=== PATIENT | female | born 1940 | race Caucasian/White ===

== ENCOUNTER 2016-06-11 05:22 | Emergency (ER) | payer MEDICARE ==
[2016-06-11] MEDS ORDERED: IOPAMIDOL 370 (76%) 100 ML VIAL IV ONE (05:23)
[2016-06-11] MEDS ORDERED: ASPIRIN CHEWTAB 81 MG TABLET ONE (05:34)
[2016-06-11] MEDS ORDERED: SODIUM CHLORIDE 0.9% 1,000 ML ONE (06:02)
[2016-06-11] MEDS ORDERED: METOPROLOL TARTRATE 1 MG/ML 5ML VIAL ONE (06:02)
[2016-06-11 06:27] LABS: ABSOLUTE NEUTROPHIL COUNT 17.4 K/mm3 (1.8-7.7); BASO # 0.1 K/mm3 (0.0-0.2); BASO % 0.3 % (0.2-1.0); EOS # 0.5 (0.0-0.5); EOS % 2.3 % (0.9-2.9); HEMATOCRIT 39.6 % (37.0-47.0); HEMOGLOBIN 12.4 gm/l (12.0-16.0); IMM NEUT # 0.2 K/mm3 (0-0.2); IMM NEUT% 0.8 % (0-1); LYMPH # 0.9 (1.0-4.8); LYMPH % 4.6 % (15-45); MEAN CELL VOLUME 85.7 fl (81.0-99.0); MEAN CORPUSCULAR HEMOGLOBIN 26.8 pg (27.0-31.0); MEAN CORPUSCULAR HGB CONC 31.3 g/dl (33.0-37.0); MEAN PLATELET VOLUME 9.2 fl (7.4-10.4); MONO # 0.7 (0.0-0.8); MONO % 3.6 % (4-12); NEUT % 88.4 % (43-75); PLATELET COUNT 344 K/mm3 (130-400); RED CELL DISTRIBUTION WIDTH 16.9 % (11.5-14.5)
[2016-06-11 06:39] LABS: TROPONIN I < 0.01 ng/ml (0.0-0.06)
[2016-06-11 06:41] LABS: ALB/GLOB RATIO 0.7 (>1.0); ALBUMIN 2.9 gm/dL (3.5-5.7)
[2016-06-11 06:42] LABS: CKMB ISOENZYME 2.4 ng/ml (0.6-6.3)
[2016-06-11 08:27] LABS: SPECIFIC GRAVITY 1.015 (1.001-1.030); URINE APPEARANCE CLEAR; URINE BILIRUBIN NEGATIVE (NEGATIVE); URINE BLOOD NEGATIVE (NEGATIVE); URINE COLOR YELLOW; URINE GLUCOSE (UA) 2+ (NEGATIVE); URINE LEUKOCYTE ESTERASE NEGATIVE (NEGATIVE); URINE NITRITE NEGATIVE (NEGATIVE); URINE PROTEIN NEGATIVE (NEGATIVE); URINE UROBILINOGEN NORMAL (0-1 mg/dl)
--- NOTE | 2016-06-11 08:51 | RAD ---
CHEST - 2 VIEWS COMPARISON: Chest 2 views, 02/04/2015 HISTORY: Chest pain and shortness of breath for one week. FINDINGS: Views: Frontal and lateral chest Lungs: Normal Heart and vessels: Normal Trachea and bronchi: Normal Mediastinum and arely: Normal Costophrenic sulci: Normal Chest wall and bones: No acute finding. Sternotomy wires. Degenerative changes in the spine. Upper abdomen: No acute finding. Surgical clips in the right upper quadrant. Atherosclerotic calcification of the aorta. IMPRESSION: 1. No acute finding. 2. Sternotomy wires, atherosclerosis of the aorta, spondylosis of the thoracic spine, and cholecystectomy clips.
--- NOTE | 2016-06-11 09:23 | RAD ---
LEFT HIP AND AP PELVIS SERIES HISTORY: 14 days of left hip pain. Frontal view of the pelvis with frontal and frog-leg lateral views of the left hip. PELVIC RING: Grossly intact. HIP ALIGNMENT: Grossly unremarkable. HIP JOINT SPACES: Preserved. Minor osteophyte formation bilaterally. CALCIFICATIONS: Enthesophyte formation along the iliac wings. Vascular calcifications overlie the femoral heads. ABDOMEN: Renal excretion of contrast compatible with recent chest CTA. Left mid abdominal surgical clips. FRACTURE: No displaced fracture identified. LUMBAR SPINE: Findings of disc and facet degeneration. IMPRESSION: 1. No malalignment or displaced acute fracture noted. Early osteoarthritic change of the hips. 2. Evidence of lower extremity atherosclerotic disease and lumbar spondylosis. 3. Postsurgical change of the abdomen. 4. Evidence of recent intravenous contrast administration.
--- NOTE | 2016-06-11 09:25 | CT ---
CTA CHEST FOR PE COMPARISON: Chest 2 views, 06/11/2016 HISTORY: Pleuritic chest pain and shortness of breath. Elevated d-dimer. Elevated white blood cell count. Technique: Intravenous injection 80 mL [id number]. Using a [employer] Aquilion [address] scanner, following a CT angiogram protocol, images obtained through the thorax. Under concurrent supervision and interpretation, requiring a separate 3-D workstation, the technologist created 3-D CT angiograms. An automated dose reduction technique was used to minimize patient radiation dose. Dose information: DLP(mGycm): 1057.60 FINDINGS: Pulmonary arteries and veins: Excellent contrast opacification. No pulmonary embolism. Aorta: Normal Heart and coronary arteries: Coronary artery calcifications. Lungs: Bilateral patchy groundglass opacity. Trachea and bronchi: Normal. Mediastinum and arely: Normal. Pleura and pericardium: Normal. Chest wall: Sternotomy wires. Spine: Degenerative changes. Upper abdomen:Normal. 3-D CT angiogram: Normal. IMPRESSION: 1. CT pulmonary angiogram negative for pulmonary embolism. 2. Bilateral patchy groundglass infiltrates in both lungs. Differential diagnosis includes infection such as viral pneumonia, ARDS, hypersensitivity pneumonitis. The results were discussed with Bill Velázquez M.D. 06/11/2016 at 09:22
== END 2016-06-11 11:33 | disposition home or self-care (01) ==
LOC: ED 05:22
DX: R07.89 Other chest pain (principal); I10 Essential (primary) hypertension; I25.10 Atherosclerotic heart disease of native coronary artery without angina pectoris; K21.9 Gastro-esophageal reflux disease without esophagitis; M10.9 Gout, unspecified; E11.9 Type 2 diabetes mellitus without complications; M79.7 Fibromyalgia; M19.90 Unspecified osteoarthritis, unspecified site; Z98.890 Other specified postprocedural states
CPT/HCPCS: 85379; 85025; 82553; 80053; 81003; 84484; 36415; 71020; 73502; 71275; 87804; 99285; 96374; 96361 ×2; 93005; 99284; A9270; J7030; Q9967

== ENCOUNTER 2016-06-13 08:02 | Emergency (ER) | payer MEDICARE ==
[2016-06-13 08:34] LABS: ABSOLUTE NEUTROPHIL COUNT 16.3 K/mm3 (1.8-7.7); BASO # 0.1 K/mm3 (0.0-0.2); BASO % 0.3 % (0.2-1.0); EOS # 0.7 (0.0-0.5); EOS % 3.6 % (0.9-2.9); HEMATOCRIT 36.1 % (37.0-47.0); HEMOGLOBIN 11.9 gm/l (12.0-16.0); IMM NEUT # 0.2 K/mm3 (0-0.2); LYMPH # 1.9 (1.0-4.8); LYMPH % 9.5 % (15-45); MEAN CELL VOLUME 83.4 fl (81.0-99.0); MEAN CORPUSCULAR HEMOGLOBIN 27.5 pg (27.0-31.0); MEAN PLATELET VOLUME 9.7 fl (7.4-10.4); MONO % 5.1 % (4-12); NEUT % 80.5 % (43-75); PLATELET COUNT 463 K/mm3 (130-400); RED CELL DISTRIBUTION WIDTH 17.2 % (11.5-14.5)
[2016-06-13] MEDS ORDERED: HYDROCODONE/ACETAMINOPHEN 5/325MG TABLET ONE (08:45)
[2016-06-13] MEDS ORDERED: IBUPROFEN 800 MG TABLET ONE (08:45)
[2016-06-13] MEDS ORDERED: DIAZEPAM 5 MG TABLET ONE (08:45)
[2016-06-13 08:52] LABS: TROPONIN I 0.03 ng/ml (0.0-0.06)
[2016-06-13 08:53] LABS: ALB/GLOB RATIO 0.8 (>1.0); ALBUMIN 2.7 gm/dL (3.5-5.7); CALCIUM 8.8 mg/dL (8.6-10.3)
[2016-06-13 08:55] LABS: CKMB ISOENZYME 2.3 ng/ml (0.6-6.3)
--- NOTE | 2016-06-13 09:17 | RAD ---
EXAMINATION:CHEST - 2 VIEWS CLINICAL INDICATION: Cough and chest pain for 3 days. COMPARISON: Prior study dated 06/11/2016. FINDINGS: Heart size remains normal. Atherosclerosis with aortic ectasia is stable. There is no adenopathy identified. There is no pleural effusion. Prominent bronchovascular markings are similar. No lobar pneumonia has developed in the interim. Median sternotomy wires are again evident. IMPRESSION: Stable senescent changes and postsurgical changes of thorax with no acute process identified.
[2016-06-13 09:43] LABS: BAND 0 % (0-10); BASOPHIL 0 % (0-1); EOSINOPHIL 4 % (1-3); LYMPHOCYTE 10 % (15-45); MONOCYTE 4 % (4-12); NEUTROPHILS 82 % (43-75); PLATELET ESTIMATE NORMAL (NORMAL); TOTAL CELLS COUNTED 100
[2016-06-13 09:44] LABS: ANISOCYTOSIS 1+
[2016-06-13] MEDS ORDERED: AZITHROMYCIN 250 MG TABLET ONE (09:58)
[2016-06-13] MEDS ORDERED: HYDROMORPHONE HCL 1 MG/ML SYRINGE ONE (10:26)
== END 2016-06-13 10:46 | disposition home or self-care (01) ==
LOC: ED 08:02
DX: M54.9 Dorsalgia, unspecified (principal); J40 Bronchitis, not specified as acute or chronic; I10 Essential (primary) hypertension; E11.9 Type 2 diabetes mellitus without complications; Z79.84 Long term (current) use of oral hypoglycemic drugs
CPT/HCPCS: 85025; 82553; 80053; 84484; 71020; 99284 ×2; 96372; 93005; J1170; A9270 ×4